=== PATIENT | female | born 1960 | race Caucasian/White ===

== ENCOUNTER 2020-12-03 16:25 | Outpatient (REF) | payer MEDICARE, MEDICAID, SELFPAY ==
--- NOTE | ~2020-12-03 | MM_ITS ---
EXAMINATION: MM SCREENING DIGITAL BREAST TOMOSYNTHESIS, BILATERAL CLINICAL INFORMATION: Screening. Asymptomatic. The lifetime risk of breast cancer based on the Tyrer-Cuzick Model is 10.3%. COMPARISON: Mammography: December 02, 2019 and studies dating back to April 11, 2013 TECHNIQUE: Digital breast tomosynthesis is performed in both the craniocaudal and mediolateral oblique views along with computer-aided detection (CAD). Synthesized 2D images are generated from the tomosynthesis. FINDINGS: The breasts are almost entirely fatty (ACR BI-RADS breast composition Category a). There are no significant masses, abnormal calcifications, or other abnormalities. Innumerable skin calcifications are present within both breasts inferiorly. MM/MM tomosynthesis screening BI IMPRESSION: No specific mammographic findings to suggest malignancy. ASSESSMENT: BI-RADS 2: Benign RECOMMENDATION: Routine annual mammography screening. This patient's information was entered into a reminder system with a target due date for their next mammogram.
== END 2020-12-03 16:26 | disposition home or self-care (01) ==
LOC: HO.MAMMO 16:25
PROVIDERS: PCP Internal Medicine Endocrinology, Diabetes & Metabolism; Visit Provider Internal Medicine Endocrinology, Diabetes & Metabolism
DX: Z12.31 Encounter for screening mammogram for malignant neoplasm of breast (principal)
CPT/HCPCS: 77063; 77067

== ENCOUNTER 2021-12-08 16:24 | Outpatient (REF) | payer MEDICARE, MEDICAID, SELFPAY ==
--- NOTE | ~2021-12-08 | MM_ITS ---
EXAMINATION: MM SCREENING DIGITAL BREAST TOMOSYNTHESIS, BILATERAL CLINICAL INFORMATION: Screening. Asymptomatic. The lifetime risk of breast cancer based on the Tyrer-Cuzick Model is 11%. COMPARISON: Mammography: 12/03/2020, 12/02/2019, 11/15/2018 TECHNIQUE: Digital breast tomosynthesis is performed in both the craniocaudal and mediolateral oblique views along with computer-aided detection (CAD). Synthesized 2D images are generated from the tomosynthesis. FINDINGS: The breasts are almost entirely fatty (ACR BI-RADS breast composition Category a). Background stromal markings are stable. There is no interval mass or architectural abnormality. Some scattered round and right ductal secretory calcifications are again seen. Prior mammography suggested numerous dermal calcifications. However, the finding is no longer present suggesting dermal artifact previously from topical ointment or powder. The axilla are unremarkable. MM/MM tomosynthesis screening BI IMPRESSION: No mammographic evidence of malignancy. ASSESSMENT: BI-RADS 2: Benign RECOMMENDATION: Routine annual mammography screening. This patient's information was entered into a reminder system with a target due date for their next mammogram.
== END 2021-12-08 16:25 | disposition home or self-care (01) ==
LOC: HO.MAMMO 16:24
PROVIDERS: PCP Internal Medicine Endocrinology, Diabetes & Metabolism; Visit Provider Internal Medicine Endocrinology, Diabetes & Metabolism
DX: Z12.31 Encounter for screening mammogram for malignant neoplasm of breast (principal)
CPT/HCPCS: 77063; 77067

== ENCOUNTER 2022-04-13 16:39 | Outpatient (REF) | payer MEDICARE, MEDICAID, SELFPAY ==
[2022-04-13 16:54] LABS: MANUAL DIFF FLAG NO
[2022-04-13 18:16] LABS: Alanine Aminotransferase 18 U/L (0-31); Albumin Level 4.7 g/dL (3.5-5.0); Alkaline Phosphatase 56 U/L (39-117); Aspartate Amino Transferase 20 U/L (5-31); Bilirubin Direct 0.2 mg/dL (0.0-0.5); Bilirubin Total 0.8 mg/dL (0.0-1.0); Iron 93 mcg/dL (30-160); Percent Iron Saturation 32 % (15-50); Total Iron Binding Capacity 293 mcg/dL (228-428); Total Protein 7.7 g/dL (6.5-8.0); Unsaturated Iron Binding 200 ug/dL
[2022-04-13 18:26] LABS: Basophils Absolute Auto 0.1 X10*3/uL (0.0-0.2); Basophils Percent Auto 0.9 % (0-2); Eosinophils Absolute Auto 0.2 X10*3/uL (0.0-0.4); Eosinophils Percent Auto 3.1 % (0-4); Hematocrit 43.3 % (37.0-47.0); Hemoglobin 14.4 g/dl (12.0-16.0); Imm Gran Abs Auto 0.01 X10*3/uL (0.00-0.03); Imm Gran Pct Auto 0.2 % (0.0-0.4); Lymphocytes Absolute Auto 2.7 X10*3/uL (1.2-4.9); Lymphocytes Percent Auto 41.8 % (20-40); Mean Corpuscular HGB Conc 33.3 g/dl (31.0-35.0); Mean Corpuscular Hemoglobin 30.4 pg (27.0-33.0); Mean Corpuscular Volume 91.4 fL (80.0-98.0); Mean Platelet Volume 9.6 fL (9.4-12.3); Monocytes Absolute Auto 0.4 X10*3/uL (0.1-1.2); Monocytes Percent Auto 6.9 % (2-11); Neutrophils Percent Auto 47.1 % (45-73); Platelet Count 308 X10*3/uL (160-400); Red Blood Count 4.74 X10*6/uL (4.20-5.50); Red Cell Distribution Width 12.3 % (11.0-16.0); White Blood Count 6.4 X10*3/uL (4.8-10.8)
== END 2022-04-13 16:40 | disposition home or self-care (01) ==
LOC: HO.LAB 16:39
PROVIDERS: Visit Provider Physician Assistant Medical
DX: L65.9 Nonscarring hair loss, unspecified (principal)
CPT/HCPCS: 36415; 80076; 83540; 85025

== ENCOUNTER 2023-03-31 09:08 | Outpatient (AMB) | payer MEDICARE, MEDICAID, SELFPAY ==
--- NOTE | 2023-03-31 09:14 | MHC.OFFWIV ---
Intake Vital Signs 03/31/23 09:15 Height 5 ft 6 in Weight 175 lb BMI 28.2 BP 130/90 H Blood Pressure Location Lt brachial Position Sitting Pulse 94 Pulse Source Pulse Oximeter Pulse Oximetry (%) 98 Oxygen Delivery Method Room Air Intake Visit Reasons: EP RT hip pain Intake Note: Patient here for right hip pain which has been progressively worsened over the past couple of weeks. Pain goes to the thigh and is having issues bending. Patient Tobacco Use Status: Never used Tobacco Allergies bacitracin [From Cortisporin] Allergy (Mild, Verified 03/31/23 09:17) itchy rash hydrocortisone [From Cortisporin] Allergy (Mild, Verified 03/31/23 09:17) itchy rash neomycin [From Cortisporin] Allergy (Mild, Verified 03/31/23 09:17) itchy rash polymyxin B [From Cortisporin] Allergy (Mild, Verified 03/31/23 09:17) itchy rash azithromycin [From ZITHROMAX] Allergy (Unknown, Unverified 03/31/23 09:17) HIVES Iodinated Contrast Media [IV DYE, IODINE CONTAINING CONTRAST ] Allergy (Unknown, Unverified 03/31/23 09:17) DIFFICULTY BREATHING sulfamethoxazole [From BACTRIM] Allergy (Unknown, Unverified 03/31/23 09:17) RASH sumatriptan [From IMITREX] Allergy (Unknown, Unverified 03/31/23 09:17) RASH trimethoprim [From BACTRIM] Allergy (Unknown, Unverified 03/31/23 09:17) RASH From IMITREX Allergy (Unknown, Uncoded 03/31/23 09:17) RASH Do you need a note to return to daycare/school/sports/work: No HPI EP RT hip pain HPI Details Patient is a 62-year-old female comes to the walk-in clinic complaining of Patient here for right hip pain which has been progressively worsening over the last few weeks. She has not trialed more than OTC ibuprofen for this in the past. She has appointment in about a week with collections specialist however she states that the pain has become severe especially when elevating her leg. No fever or chills, weakness or malaise or other systemic or infectious symptoms. She denies acute trauma or repetitive injury. [facility] Social History Patient Tobacco Use Status: Never used Tobacco Review of Systems Const All systems reviewed & are unremarkable except as noted in HPI and below Physical Exam Vital Signs: Last Vital Signs Pulse 94 03/31/23 09:15 BP 130/90 H 03/31/23 09:15 Pulse Ox 98 03/31/23 09:15 Oxygen Delivery Method Room Air 03/31/23 09:15 BMI result Body Mass Index 28.2 Const General: cooperative, alert, awake, Physically active, in distress and well groomed; No comfortable, anxious, diaphoretic, ill appearing, intoxicated appearing, poor hygiene or tired appearing Nutritional Appearance: overweight Orientation/consciousness: patient oriented x3 Resp Effort & Inspection: normal respiratory effort Cardio Rate: regular rate Skin Other: Good color, warm and dry Neuro General: patient oriented x3 Extrem Right lower extremity: normal to inspection, normal capillary refill, no joint enlargement and hip/thigh Details: tenderness Location: of the hip and abnormal ROM Details: pain with active ROM during Details: with ADduction and to external rotation; no swelling, no ecchymosis, no crepitus and no unusual warmth; ROM limited, no cyanosis and no edema Psych Appearance: grossly normal Mental Status: mental status grossly normal Speech and movement: Normal speech and movement present Affect: normal affect Attitude: cooperative Thought process: Normal thought process present Insight: Good insight present (Psych) Judgement: Good judgement present (Psych) Results Reviewed Results Reviewed: Right hip with pelvic view reviewed, on wet read with moderate osteoarthritis. No apparent acute trauma noted Assessment & Plan Assessment & Plan (1) Hip pain: Code(s): M25.559 - Pain in unspecified hip Qualifiers: Laterality: right Qualified Code(s): M25.551 - Pain in right hip Plan: Patient is a 62-year-old female complaining of right hip pain that has become severe over the last few weeks. Plain film x-ray today shows osteoarthritis on my wet read, as well as bone spur that seems to be clinically correlated with where her pain is most severe, especially with external rotation of the hip. No symptoms to correlate with septic joint today. She has not trialed more than OTC ibuprofen for this in the past, so I will write her for naproxen today. She already has a crutch to help alleviate weight-bearing with ambulation. She states that she can not tolerate cortisone injections, so we did not consider prednisone today. She has appointment in about a week with collections specialist, and already has an appointment later this year with primary care to follow up with this. Orders: Orders XR hip RT w PEL1V 03/31/23 M25.559 - Pain in unspecified hip Medications: New naproxen 500 mg PO BID PRN 30 tabs 0RF pain 14 days Coding Level of Care Code Est Pt Level 4 (30854) Diagnoses Pain of right hip M25.551 Laterality: right
[2023-03-31 09:15] VITALS: BP 130/90; PULSE 94; O2SAT 98; BMI 28.2
== END 2023-03-31 10:34 | disposition home or self-care (01) ==
PROVIDERS: PCP Internal Medicine; Visit Provider Physician Assistant Medical
DX: M25.551 Pain in right hip (principal)
CPT/HCPCS: 99214

== ENCOUNTER 2023-03-31 09:39 | Outpatient (REF) | payer MEDICARE, MEDICAID, SELFPAY ==
--- NOTE | ~2023-03-31 | XR_ITS ---
EXAMINATION: XR HIP, RIGHT CLINICAL INFORMATION: Pain in the right hip for a few weeks COMPARISON: None available. TECHNIQUE: Two views of the right hip. FINDINGS: No fracture. Alignment is anatomic. There is pincer type femoral acetabular impingement. There is a joint space narrowing with subchondral sclerosis. Soft tissues are unremarkable. XR/XR hip RT w PEL1V IMPRESSION: Mild degenerative disease of the right hip.
== END 2023-03-31 09:40 | disposition home or self-care (01) ==
LOC: HO.HMGCX 09:39
PROVIDERS: PCP Internal Medicine; Visit Provider Physician Assistant Medical
DX: M25.551 Pain in right hip (principal)
CPT/HCPCS: 73502

== ENCOUNTER 2023-04-20 07:55 | Outpatient (AMB) | payer MEDICARE, MEDICAID, SELFPAY ==
--- NOTE | 2023-04-20 08:02 | MHC.PC.OV ---
Vital Signs 04/20/23 08:38 Height 5 ft 6 in Weight 175 lb BMI 28.2 BP 142/80 H Blood Pressure Location Rt radial Position Sitting Pulse 84 Pulse Source Pulse Oximeter Pulse Oximetry (%) 96 Oxygen Delivery Method Room Air Intake Visit Reasons: Est care / Hip Pain Allergies bacitracin [From Cortisporin] Allergy (Mild, Verified 04/20/23 08:04) itchy rash hydrocortisone [From Cortisporin] Allergy (Mild, Verified 04/20/23 08:04) itchy rash neomycin [From Cortisporin] Allergy (Mild, Verified 04/20/23 08:04) itchy rash polymyxin B [From Cortisporin] Allergy (Mild, Verified 04/20/23 08:04) itchy rash azithromycin [From ZITHROMAX] Allergy (Unknown, Verified 04/20/23 08:04) HIVES Iodinated Contrast Media [IV DYE, IODINE CONTAINING CONTRAST ] Allergy (Unknown, Verified 04/20/23 08:04) DIFFICULTY BREATHING sulfamethoxazole [From BACTRIM] Allergy (Unknown, Verified 04/20/23 08:04) RASH sumatriptan [From IMITREX] Allergy (Unknown, Verified 04/20/23 08:04) RASH trimethoprim [From BACTRIM] Allergy (Unknown, Verified 04/20/23 08:04) RASH From IMITREX Allergy (Unknown, Uncoded 03/31/23 09:17) RASH Medication List - Last Reconciled 04/20/23 by Skyla Vidal, [employer]- acetaminophen (Tylenol Extra Strength) 500 mg PO Q6H PRN cyanocobalamin (vitamin B-12) mcg IM Q4W docosahexaenoic acid (Algal [place]-3 DHA) mg PO lorazepam 1 mg PO DAILY PRN meloxicam 15 mg PO DAILY metronidazole 1% (Metrogel) 1 appl topical BID HPI HPI Comments History of Present Illness Details [age] year with osteoarthritis, pernicious anemia, insomnia, post concussive syndrome Health maintenance: Mammogram ordered May of 2023, last 12/08/2021 within normal limits BI-RADS 2 benign Colonoscopy: DEXA: Pap: Immunizations Specialists: Of note she is not seeing any of the specialists at the current time Endocrinology Cardiology Orthopedics Neurology family hx: son alive and well dtr age 14 of brain cancer [place] New patient here today. No old records to review prior to this appointment. Has not had a primary care in years. CC: Right hip impingement and OA Ff'd by [facility]. Wants to do lidocaine injection next week. Was rx'd meloxicam. Has taken 1 dose to date. MRI 03/2023 reviewed. Walking with a crutch at this time. No falls or overt trauma. Insomnia - requesting RX for ativan. Last time taken was a few weeks ago. REGISTERED DIETETIC TECHNICIAN reviewed. Melatonin she could not tolerate, along w/ Ambien, Lunesta. Does not like taking meds, feels she is very sensitive to all medications. The skin around the nail on the right ring finger has become red, painful, hot to the touch over the last few days. She has been soaking in Epsom salt and water without much relief. She denies any trauma to the finger [facility] Social History Patient Tobacco Use Status: Never used Tobacco Questionnaire PHQ-9 Over the last 2 weeks, how often have you been bothered by any of the following problems? 1. Little interest or pleasure in doing things: not at all 2. Feeling down, depressed, or hopeless: not at all 3. Trouble falling or staying asleep, or sleeping too much: not at all 4. Feeling tired or having little energy: not at all 5. Poor appetite or overeating: not at all 6. Feeling bad about yourself - or that you are a failure or have let yourself or your family down: not at all 7. Trouble concentrating on things, such as reading the newspaper or watching television: not at all 8. Moving or speaking so slowly that other people could have noticed. Or the opposite - being so fidgety or restless that you have been moving around a lot more than usual: not at all 9. Thoughts that you would be better off or of hurting yourself in some way: not at all Total score: 0 Depression Screening Interpretation: Negative Depression Screening Done: Yes 99332 - PHQ-9 Billing: Yes Source: Developed by Drs. Joseph Tracy, Ledy Nguyen, Erik Hudson and colleagues, with an educational jameson from [employer]. Thrive Questionnaire I am a: Patient What is your living situation today?: I have a steady place to live Within the past 12 months, did the food you bought not last and you didn't have the money to get more?: Never true Within the past 12 months, did you worry whether your food would run out before you got money to buy more?: Never true Do you have trouble paying for medicines?: No Do you have trouble getting transportation to medical appointments?: No Do you have trouble paying your heating and electricity bill?: No Do you have trouble taking care of your child, family member or friend?: No Do you have trouble with day-to-day activities such as bathing, preparing meals, shopping, managing finances, etc.?: No Are you currently unemployed and looking for a job?: No Are you interested in more education?: No Please select the resources that you would like help with: None Currently or been in a relationship where the following occur: no concerns reported THRIVE Score: 0 AUDIT C Alcohol Use Questionnaire (AUDIT-C) 1. How often do you have a drink containing alcohol?: Never 2. How many drinks containing alcohol do you have on a typical day when you are drinking?: 1 or 2 3. How often do you have six or more drinks on one occasion?: Never Total Score: 0 Score Reviewed/Action Taken: No GLADIS-7 AMB Questionnaire GLADIS-7 Feeling nervous, anxious, or on edge: 0 = Not at all Not being able to stop or control worryin = Not at all Worrying too much about different things: 0 = Not at all Trouble relaxin = Not at all Being so restless that it is hard to sit still: 0 = Not at all Becoming easily annoyed or irritable: 0 = Not at all Feeling afraid as if something awful might happen: 0 = Not at all Total GLADIS-7 score (0-4 normal; 5-9 mild; 10-14 moderate; 15-21 severe): 0 Source: Developed by Drs. Joseph Tracy, Ledy Nguyen, Erik Hudson and colleagues, with an educational jameson from [employer]. GLADIS-7 Assessment Billing GLADIS-7 Assessment Tool: GLADIS-7 Assessment 91600 Review of Systems Const All systems reviewed & are unremarkable except as noted in HPI and below Physical exam (Primary Care) Vital Signs: Last Vital Signs Pulse 84 04/20/23 08:38 BP 142/80 H 04/20/23 08:38 Pulse Ox 96 04/20/23 08:38 Oxygen Delivery Method Room Air 04/20/23 08:38 BMI result Body Mass Index 28.2 Tobacco/Smoking Status: Tobacco use Status Patient Tobacco Use Status Never used Tobacco 04/20/23 08:11 PHQ-9: PHQ-9 Score PHQ-9: Total score 0 04/20/23 11:31 Depression Screening Interpretation: Negative Currently or been in a relationship where the following occur: no concerns reported Const Other: Awake alert oriented ls ctab rrr Walking with 1 crutch, antalgic gait favoring the right side, limited range of motion of the right hip due to pain. Positive pedal pulses on the right, no edema Paronychia noted right ring finger Assessment and Plan Assessment & Plan (1) Osteoarthritis of right hip: Comment: Followed by knowing when Orthopedics. I have advised her to continue taking the meloxicam as directed. Do not take with any other [id number] NSAIDs. It is okay to use up to 3 g of Tylenol per day to help with breakthrough pain. I have also advised her to get a commode to use the bathroom so that she does not have to sit so low which seems to cause her more pain. She asked me what other medication she could use for her pain and I advised that she can continue to use the topical lidocaine patches as well as add turmeric into her med regimen. Code(s): M16.11 - Unilateral primary osteoarthritis, right hip Qualifiers: Osteoarthritis type: primary Qualified Code(s): M16.11 - Unilateral primary osteoarthritis, right hip (2) Insomnia: Comment: Was using Ativan in the past for insomnia. Beers criteria reviewed with her. Reports that she has tried and failed Lunesta and Ambien in the past. She has also failed melatonin. We will trial her on trazodone 25-50 mg. I have asked her to let me know how this is or is not working. We can titrate to effect. If this is not effective we can consider stopping this and starting mirtazapine. Sleep hygiene reviewed Code(s): G47.00 - Insomnia, unspecified Qualifiers: Insomnia type: due to other mental disorder Qualified Code(s): F51.05 - Insomnia due to other mental disorder; F99 - Mental disorder, not otherwise specified (3) Pernicious anemia: Comment: Gives herself B12 injections. We will check labs today Code(s): D51.0 - Vitamin B12 deficiency anemia due to intrinsic factor deficiency (4) Paronychia of finger of right hand: Code(s): L03.011 - Cellulitis of right finger Plan: Treat with antibiotics. Continue to soak in warm water mix with Epsom salt. Gently massage the area of redness. However do not squeeze. Educated on reasons to seek additional care (5) Post-menopause: Comment: Will need to check a DEXA scan in the future. Vitamin-D labs ordered today Code(s): Z78.0 - Asymptomatic menopausal state Plan I have asked my staff to get records from [facility] as she reports that she has had visits there to include imaging. She reports that all of her other medical records are available to me this includes her records from previous neurologist Dr. Magana on whose practice since closed or Dr. Soniya reed who is the inorganic chemistry teacher that was working both as her primary care as well as her inorganic chemistry teacher. Total time spent caring for the patient today was 60 minutes. This includes time spent before the visit reviewing the chart, time spent during the visit, and time spent after the visit on documentation This note is constructed using voice recognition software. While every effort has been made to ensure accuracy in [employer] rep, still errors may have been included Sometimes, these errors may affect the content or meaning of the given sentence . Orders: Orders Comprehensive Met. Panel Today D51.0 - Vitamin B12 deficiency anemia due to intrinsic factor deficiency, Z78.0 - Asymptomatic menopausal state TSH reflex Free T4 Today D51.0 - Vitamin B12 deficiency anemia due to intrinsic factor deficiency, Z78.0 - Asymptomatic menopausal state Vitamin D 1,25 dihydroxy Today D51.0 - Vitamin B12 deficiency anemia due to intrinsic factor deficiency, Z78.0 - Asymptomatic menopausal state Complete Blood Count no Diff Today D51.0 - Vitamin B12 deficiency anemia due to intrinsic factor deficiency, Z78.0 - Asymptomatic menopausal state Microalbumin, Random (w Creat) Today D51.0 - Vitamin B12 deficiency anemia due to intrinsic factor deficiency, Z78.0 - Asymptomatic menopausal state LDL Cholesterol Direct Today D51.0 - Vitamin B12 deficiency anemia due to intrinsic factor deficiency, Z78.0 - Asymptomatic menopausal state Vitamin B12 and Folate Today D51.0 - Vitamin B12 deficiency anemia due to intrinsic factor deficiency, Z78.0 - Asymptomatic menopausal state UA and rflx microscopic Today D51.0 - Vitamin B12 deficiency anemia due to intrinsic factor deficiency, Z78.0 - Asymptomatic menopausal state Medications: New trazodone 1/2 - 1 tab daily at bedtime as needed for insomnia 25 mg (1/2 x 50 mg) PO DAILY 30 days 15 tabs 0RF cephalexin 500 mg PO Q12H 7 days 14 caps 0RF Changed From cyanocobalamin (vitamin B-12) IM Q4W D51.0 - Vitamin B12 deficiency anemia due to intrinsic factor deficiency To cyanocobalamin (vitamin B-12) 1,000 mcg IM Q4W 1,200 mL 0RF D51.0 - Vitamin B12 deficiency anemia due to intrinsic factor deficiency Patient Instructions: Consider purchasing toilet commode Turmeric dosage for arthritis: According to the [employer], a turmeric capsules dosage of?400 to 600 milligrams three times per day Coding Level of Care Code New Pt Level 5 (02799) Diagnoses Primary osteoarthritis of right hip M16.11 Osteoarthritis type: primary Insomnia due to other mental disorder F51.05; F99 Insomnia type: due to other mental disorder Pernicious anemia D51.0 Paronychia of finger of right hand L03.011 Post-menopause Z78.0 Additional Codes GLADIS-7 Assessment Billing - GLADIS-7 Assessment Tool: GLADIS-7 Assessment 06347 ([id number])
[2023-04-20 08:38] VITALS: BP 142/80; PULSE 84; O2SAT 96; BMI 28.2
== END 2023-04-20 08:53 | disposition home or self-care (01) ==
PROVIDERS: PCP Internal Medicine; Visit Provider Nurse Practitioner Family
DX: M16.11 Unilateral primary osteoarthritis, right hip (principal); F51.05 Insomnia due to other mental disorder; F99 Mental disorder, not otherwise specified; D51.0 Vitamin B12 deficiency anemia due to intrinsic factor deficiency; L03.011 Cellulitis of right finger; Z78.0 Asymptomatic menopausal state
CPT/HCPCS: 99215

== ENCOUNTER 2023-05-28 10:53 | Outpatient (AMB) | payer MEDICARE, MEDICAID, SELFPAY ==
--- NOTE | 2023-05-28 11:01 | A.OFFPC_ITS ---
Vital Signs 05/28/23 11:03 Height 5 ft 6 in BMI Reason not done Patient refused/unable BP 141/81 H Blood Pressure Location Rt brachial Position Standing Respiration 14 Pulse 114 H Pulse Source Pulse Oximeter Temp 97.6 F Temp Source Temporal Artery Scan Pulse Oximetry (%) 97 Oxygen Delivery Method Room Air Intake Visit Reasons: MILD DISABILITIES TEACHER, hip pain Print Finishing Worker Required: No Accompanied by: Self / Same As Patient Allergies bacitracin [From Cortisporin] Allergy (Mild, Verified 05/28/23 11:10) itchy rash hydrocortisone [From Cortisporin] Allergy (Mild, Verified 05/28/23 11:10) itchy rash neomycin [From Cortisporin] Allergy (Mild, Verified 05/28/23 11:10) itchy rash polymyxin B [From Cortisporin] Allergy (Mild, Verified 05/28/23 11:10) itchy rash azithromycin [From ZITHROMAX] Allergy (Unknown, Verified 05/28/23 11:10) HIVES Iodinated Contrast Media [IV DYE, IODINE CONTAINING CONTRAST ] Allergy (Unknown, Verified 05/28/23 11:10) DIFFICULTY BREATHING sulfamethoxazole [From BACTRIM] Allergy (Unknown, Verified 05/28/23 11:10) RASH sumatriptan [From IMITREX] Allergy (Unknown, Verified 05/28/23 11:10) RASH trimethoprim [From BACTRIM] Allergy (Unknown, Verified 05/28/23 11:10) RASH mirtazapine Adverse Reaction (Mild, Verified 05/28/23 11:36) Vomiting trazodone Adverse Reaction (Mild, Verified 05/28/23 11:36) Vomiting From IMITREX Allergy (Unknown, Uncoded 03/31/23 09:17) RASH Medication List - Last Reconciled 05/28/23 by GERALD Hernandez- acetaminophen (Tylenol Extra Strength) 500 mg PO Q6H PRN cyanocobalamin (vitamin B-12) 1,000 mcg IM Q4W 12 months docosahexaenoic acid (Algal [place]-3 DHA) mg PO metronidazole 0.75% 1 appl topical DAILY PRN Tobacco use date assessed: 05/28/23 Fall risk assessment: No Falls in past year Last assessed Fall Risk: 05/28/23 Dental Screening Dental Screen Date: 05/28/23 Did you have a dental visit in the last 12 months?: Yes Did you have a dental problem in the last 6 months where you did not have access to dental care?: No Was dental information given to patient?: Patient has dentist HPI HPI Comments History of Present Illness Details 63 y/o F with osteoarthritis, pernicious anemia, insomnia, post concussive syndrome Health maintenance: Mammogram ordered May of 2023, last 12/08/2021 within normal limits BI-RADS 2 benign Colonoscopy: DEXA:Ordered April 2023 Pap: Immunizations Specialists: Of note she is not seeing any of the specialists at the current time Endocrinology Cardiology Orthopedics Neurology family hx: son alive and well dtr age 14 of brain cancer [place] Still no medical records avail for me to review: Here today for follow up. Labs ordered at last office visit however she did not get these done. Will do now. Of note she did b12 injection 1 week ago. She was prescribed trazodone to help her sleep. However she could not tolerate so stopped. Reports in pain in R hip and lower leg, active w/ [facility]. States a letter was sent to me asking for something to treat the pain. Explained I did not get this as of now. Taking Aleve and APAP, does not help. Stopped taking Meloxicam. MRI done R hip 04/08/23 - pt will have scanned in. Reviewed today. Has a second opinion consult. Has not had appt yet. Trazadone made her nauseas. Remeron she took x 1 and she vomited. Lots of med adv effects. [facility] Medical History (Updated 05/28/23 @ 11:46 by Skyla Vidal, [facility]) Iliopsoas bursitis of right hip Surgical History (Updated 05/28/23 @ 11:15 by Shelly Anguiano MA) No pertinent past surgical history Social History Housing: House Patient Tobacco Use Status: Never used Tobacco e-Cigarette/Vaping Use: Never Used service: No Current occupational status: disabled Cognitive needs: No Hearing needs: Yes Vision needs: Yes Questionnaire PHQ-9 Over the last 2 weeks, how often have you been bothered by any of the following problems? 1. Little interest or pleasure in doing things: not at all 2. Feeling down, depressed, or hopeless: not at all 3. Trouble falling or staying asleep, or sleeping too much: not at all 4. Feeling tired or having little energy: not at all 5. Poor appetite or overeating: not at all 6. Feeling bad about yourself - or that you are a failure or have let yourself or your family down: not at all 7. Trouble concentrating on things, such as reading the newspaper or watching television: not at all 8. Moving or speaking so slowly that other people could have noticed. Or the opposite - being so fidgety or restless that you have been moving around a lot more than usual: not at all 9. Thoughts that you would be better off or of hurting yourself in some way: not at all Total score: 0 Depression Screening Interpretation: Negative Depression Screening Done: Yes 54099 - PHQ-9 Billing: Yes Source: Developed by Drs. Joseph Tracy, Ledy Nguyen, Erik Hudson and colleagues, with an educational jameson from [employer]. Thrive Questionnaire Date Thrive assessed: 05/28/23 I am a: Patient What is your living situation today?: I have a steady place to live Within the past 12 months, did the food you bought not last and you didn't have the money to get more?: I choose not to answer this question Within the past 12 months, did you worry whether your food would run out before you got money to buy more?: I choose not to answer this question Do you have trouble paying for medicines?: I choose not to answer this question Do you have trouble getting transportation to medical appointments?: I choose not to answer this question Do you have trouble paying your heating and electricity bill?: I choose not to answer this question Do you have trouble taking care of your child, family member or friend?: I choose not to answer this question Do you have trouble with day-to-day activities such as bathing, preparing meals, shopping, managing finances, etc.?: I choose not to answer this question Are you currently unemployed and looking for a job?: I choose not to answer this question Are you interested in more education?: I choose not to answer this question Please select the resources that you would like help with: None Currently or been in a relationship where the following occur: no concerns reported THRIVE Score: 0 AUDIT C Alcohol Use Questionnaire (AUDIT-C) 1. How often do you have a drink containing alcohol?: Never 3. How often do you have six or more drinks on one occasion?: Never Total Score: 0 GLADIS-7 AMB Questionnaire GLADIS-7 Date GLADIS - 7 assessed: 05/28/23 Feeling nervous, anxious, or on edge: 0 = Not at all Not being able to stop or control worryin = Not at all Worrying too much about different things: 0 = Not at all Trouble relaxin = Not at all Being so restless that it is hard to sit still: 0 = Not at all Becoming easily annoyed or irritable: 0 = Not at all Feeling afraid as if something awful might happen: 0 = Not at all Total GLADIS-7 score (0-4 normal; 5-9 mild; 10-14 moderate; 15-21 severe): 0 Source: Developed by Drs. Joseph Tracy, Ledy Nguyen, Erik Hudson and colleagues, with an educational jameson from [employer]. GLADIS-7 Assessment Billing GLADIS-7 Assessment Tool: GLADIS-7 Assessment 97931 Review of Systems Const All systems reviewed & are unremarkable except as noted in HPI and below Physical exam (Primary Care) Vital Signs: Last Vital Signs Temp 97.6 F 05/28/23 11:03 Pulse 114 H 05/28/23 11:03 Resp 14 05/28/23 11:03 BP 141/81 H 05/28/23 11:03 Pulse Ox 97 05/28/23 11:03 Oxygen Delivery Method Room Air 05/28/23 11:03 Tobacco/Smoking Status: Tobacco use Status Tobacco use date assessed 05/28/23 05/28/23 11:18 Patient Tobacco Use Status Never used Tobacco 05/28/23 11:02 e-Cigarette/Vaping Use Never Used 05/28/23 11:18 PHQ-9: PHQ-9 Score PHQ-9: Total score 0 05/28/23 11:18 Depression Screening Interpretation: Negative Thrive Assessment: Date of Thrive Assessment Date Thrive assessed 05/28/23 05/28/23 11:18 Currently or been in a relationship where the following occur: no concerns reported Const Other: Awake alert oriented, standind during visit, wearing sun glasses speaking in full sentences Mood and affect: pacing, talking quick, repeating same questions, anxious, depressed Walking with 1 crutch, antalgic gait favoring the right side, limited range of motion of the right hip due to pain. r Assessment and Plan Assessment & Plan (1) Osteoarthritis of right hip: Comment: Followed by JOHN. MRI 03/2023. She has requested a 2nd opinion and this consult is pending. Active with [facility] physical therapy. For her pain I have advised her to stop taking aleve and have represcribed meloxicam. Do not take with any other [id number] NSAIDs. It is okay to use up to 3 g of Tylenol per day to help with breakthrough pain. At last visit I advised her to get a commode to use the bathroom so that she does not have to sit so low which seems to cause her more pain. She asked me what other medication she could use for her pain and I advised that she can continue to use the topical lidocaine patches as well as add turmeric into her med regimen. Did not revisit these 2 recommendations today. Given the amount of pain that she is having decision was made to refer her to pain management at [facility] for further evaluation and treatment. Code(s): M16.11 - Unilateral primary osteoarthritis, right hip Qualifiers: Osteoarthritis type: primary Qualified Code(s): M16.11 - Unilateral primary osteoarthritis, right hip (2) Insomnia: Comment: Was using Ativan in the past for insomnia. Beers criteria reviewed with her at last visit Reports that she has tried and failed Lunesta and Ambien in the past. She has also failed melatonin. Trazodone made her nauseous and mirtazapine made her vomit. Prescription for Cymbalta 30 mg to be taken at bedtime given. I made her aware that I am worried she will not be able to tolerate given her adverse reactions to multiple medications. She mentioned taking Gaviscon or Tums at the same time. Educated about proper use of these medications. Do not take 2 hours before or 2 hours after prescribed medications. I have given her a 2 week supply and will bring her back in 2 weeks to follow up. Code(s): G47.00 - Insomnia, unspecified Qualifiers: Insomnia type: due to other mental disorder Qualified Code(s): F51.05 - Insomnia due to other mental disorder; F99 - Mental disorder, not otherwise specified Plan This note is constructed using voice recognition software. While every effort has been made to ensure accuracy in microwave remote sensing scientist, still errors may have been included Sometimes, these errors may affect the content or meaning of the given sentence . Total time spent caring for the patient today was 30 minutes. This includes time spent before the visit reviewing the chart, time spent during the visit, and time spent after the visit on documentation Orders: Referrals Pain Management Referral M16.11 - Unilateral primary osteoarthritis, right hip Medications: New meloxicam 15 mg PO DAILY 30 tabs 0RF duloxetine (Cymbalta) take at bedtime 30 mg PO DAILY 14 caps 0RF Coding Level of Care Code Est Pt Level 4 (62112) Diagnoses Primary osteoarthritis of right hip M16.11 Osteoarthritis type: primary Insomnia due to other mental disorder F51.05; F99 Insomnia type: due to other mental disorder Additional Codes GLADIS-7 Assessment Billing - GLADIS-7 Assessment Tool: GALDIS-7 Assessment 50005 ([id number])
[2023-05-28 11:03] VITALS: BP 141/81; PULSE 114; RESP 14; TEMP 36.4; O2SAT 97
== END 2023-05-28 11:59 | disposition home or self-care (01) ==
PROVIDERS: PCP Internal Medicine; Visit Provider Nurse Practitioner Family
DX: M16.11 Unilateral primary osteoarthritis, right hip (principal); F51.05 Insomnia due to other mental disorder; F99 Mental disorder, not otherwise specified
CPT/HCPCS: 99214

== ENCOUNTER 2023-05-28 11:43 | Outpatient (REF) | payer MEDICARE, MEDICAID, SELFPAY ==
[2023-05-28 14:31] LABS: Hematocrit 42.7 % (37.0-47.0); Hemoglobin 14.3 g/dl (12.0-16.0); Mean Corpuscular HGB Conc 33.5 g/dl (31.0-35.0); Mean Corpuscular Volume 92.4 fL (80.0-98.0); Mean Platelet Volume 10.1 fL (9.4-12.3); Platelet Count 318 X10*3/uL (160-400); Red Blood Count 4.62 X10*6/uL (4.20-5.50); Red Cell Distribution Width 12.3 % (11.0-16.0); White Blood Count 6.3 X10*3/uL (4.8-10.8)
[2023-05-28 14:37] LABS: Alanine Aminotransferase 13 U/L (0-31); Albumin Level 4.6 g/dL (3.5-5.0); Alkaline Phosphatase 55 U/L (39-117); Anion Gap 13 (12-20); Aspartate Amino Transferase 14 U/L (5-31); Bilirubin Total 0.7 mg/dL (0.0-1.0); Blood Urea Nitrogen 15 mg/dL (9-16); Calcium 9.7 mg/dL (8.4-10.2); Carbon Dioxide 25 mmol/L (22-29); Chloride 106 mmol/L (96-108); Estimated Glomerular Filt Rate > 60; Glucose Random 132 mg/dL (60-115); Potassium 3.6 mmol/L (3.3-5.1); Sodium 140 mmol/L (135-145); Total Protein 7.7 g/dL (6.5-8.0)
[2023-05-28 14:53] LABS: TSH reflex Free T4 0.72 uIU/mL (0.32-4.0)
[2023-05-28 15:07] LABS: Vitamin B12 906 pg/mL (200-900)
[2023-05-30 11:08] LABS: LDL Cholesterol Direct 104 mg/dL (<100)
[2023-06-03 15:33] LABS: VITAMIN D (1,25 OH) D3 25 pg/mL; Vit D (1,25-Dihydroxy) Total 48 pg/mL (18-72); Vitamin D (1,25 OH) D2 23 pg/mL
== END 2023-05-28 11:44 | disposition home or self-care (01) ==
LOC: HO.WFDLDS 11:43
PROVIDERS: Visit Provider Nurse Practitioner Family
DX: D51.0 Vitamin B12 deficiency anemia due to intrinsic factor deficiency (principal); Z78.0 Asymptomatic menopausal state
CPT/HCPCS: 36415; 80053; 82607; 82652; 82746; 83721; 84443; 85027

== ENCOUNTER 2023-06-14 12:55 | Outpatient (AMB) | payer MEDICARE, MEDICAID, SELFPAY ==
--- NOTE | 2023-06-14 12:57 | A.OFFVIS_ITS ---
Intake Vital Signs 3 06/14/23 13:01 Height 5 ft 6 in Weight 175 lb BMI 28.2 BP 134/80 Blood Pressure Location Lt brachial Position Sitting Pulse 105 H Pulse Source Pulse Oximeter Pulse Oximetry (%) 99 Oxygen Delivery Method Room Air Intake Visit Reasons: Unilateral primary osteoarthritis, R hip Intake Note: Pain today 06/26 Manufacturing Technology Analyst Required: No Accompanied by: Family/Other Allergies bacitracin [From Cortisporin] Allergy (Mild, Verified 06/14/23 13:02) itchy rash hydrocortisone [From Cortisporin] Allergy (Mild, Verified 06/14/23 13:02) itchy rash neomycin [From Cortisporin] Allergy (Mild, Verified 06/14/23 13:02) itchy rash polymyxin B [From Cortisporin] Allergy (Mild, Verified 06/14/23 13:02) itchy rash azithromycin [From ZITHROMAX] Allergy (Unknown, Verified 06/14/23 13:02) HIVES Iodinated Contrast Media [IV DYE, IODINE CONTAINING CONTRAST ] Allergy (Unknown, Verified 06/14/23 13:02) DIFFICULTY BREATHING sulfamethoxazole [From BACTRIM] Allergy (Unknown, Verified 06/14/23 13:02) RASH sumatriptan [From IMITREX] Allergy (Unknown, Verified 06/14/23 13:02) RASH trimethoprim [From BACTRIM] Allergy (Unknown, Verified 06/14/23 13:02) RASH mirtazapine Adverse Reaction (Mild, Verified 06/14/23 13:02) Vomiting trazodone Adverse Reaction (Mild, Verified 06/14/23 13:02) Vomiting From IMITREX Allergy (Unknown, Uncoded 03/31/23 09:17) RASH HPI HPI Comments 2 History of Present Illness0 Details Lilly is a very pleasant 63-year-old female who presents to the office today for evaluation management of her right hip pain. He is accompanied by her son. Patient reports pain or right hip with radiation into the groin and thigh for the last 4 months. She had a recent MRI, results as per below. Currently taking Tylenol and nonsteroidal anti-inflammatory medications for the pain. She reports limited benefit with these medications. Pain is worse at night causing her inability to get a good night's sleep. She has been evaluated by [facility] who recommended PT, she tried physical therapy but many of the exercises were too painful. Recently evaluated by Dr. Cosme at [place], plan to start targeted physical therapy. He advised that if she does not find relief with this they can move forward with total right hip replacement. She is hoping to hold off on surgery until absolutely necessary. [facility] surgeons performed diagnostic right hip injection that provided her no relief. She did not tolerate steroids in the past and declines further attempts at injections to the hip. Patient has tried topical medications, heat and ice with minimal improvement of her symptoms Pain today is rated as a 4/10. Aggravated by walking, moving, lying on the affected side. In terms of muscle damage condition is described as pinching, cramping. Pain is negatively impacting patient's sleep, ability to perform activities of daily living, ability to function normally and mood. [facility] Medical History (Updated 06/14/23 @ 14:12 by Stephanie Collins APRN, [facility]) Iliopsoas bursitis of right hip Surgical History (Updated 05/28/23 @ 11:15 by Shelly Anguiano MA) No pertinent past surgical history Social History Housing: House Patient Tobacco Use Status: Never used Tobacco e-Cigarette/Vaping Use: Never Used service: No Current occupational status: disabled Cognitive needs: No Hearing needs: Yes Vision needs: Yes Review of Systems Const All systems reviewed & are unremarkable except as noted in HPI and below Physical Exam Vital Signs: Last Vital Signs Pulse 105 H 06/14/23 13:01 BP 134/80 06/14/23 13:01 Pulse Ox 99 06/14/23 13:01 Oxygen Delivery Method Room Air 06/14/23 13:01 BMI result Body Mass Index 28.2 General: awake, alert, oriented. Answers questions appropriately. Fully engaged in examination. Skin: warm, dry, intact HEENT: Normocephalic. Hearing intact. Cardiac: External chest normal in appearance. Respiratory: No cough, audible wheezing or stridor. Abdomen: without gross distension. MS: No obvious swelling or deformities. Pain with internal/external rotation of the right hip Unable to perform [place] on the right due to pain SLR negative bilaterally Nontender over right PSIS Nontender over midline lumbar vertebrae or lumbar paraspinal muscles Nontender over GTB on the right Bilateral lower extremity strength 5/5 Neurological: Oriented to person, place, time and situation. Thought process intact. Ambulates with use of a crutch Psychiatric: Appropriate mood and affect. Good judgment and insight. Results Reviewed Results Reviewed: 03/2023 MRI right hip Assessment & Plan Assessment & Plan (1) Osteoarthritis of right hip: Code(s): M16.11 - Unilateral primary osteoarthritis, right hip Qualifiers: Osteoarthritis type: primary Qualified Code(s): M16.11 - Unilateral primary osteoarthritis, right hip Plan Lilly is a very pleasant 63-year-old female who presented to the office today for evaluation and management of her chronic right hip pain She is currently under the care of Orthopedics, will be starting targeted physical therapy with potential plan for right total hip replacement. Patient declines any injections to the right hip at this time. Discussed L2-L3 DRG PNS trial/implant with Curonix. Informational pamphlet was provided to the patient. She will consider but at this time would like to start with least invasive options for management. Patient was advised that she would need a mental health evaluation prior to any implantable devices per insurance requirements. Advantage point pamphlet was given to the patient. Continue with Tylenol and Motrin as needed Trial tizanidine 2 mg p.o. 3 times daily as needed. May start taking only at bedtime to see how she tolerates. Patient advised on cautions for use. May cause drowsiness, do not take with alcohol or other NETWORK SPECIALIST depressants. Discuss options for gabapentin, patient does not want to add this medication at this time. She will consider and if pain persists we may add this to her regimen at next visit. All questions and concerns were answered, patient agrees plan. Follow-up 1 month, sooner if needed. Medications: New 2 tizanidine Do not take with other muscle relaxants. No driving or alcohol use while taking this medication. 2 mg PO TID PRN 90 tabs 0RF muscle spasticity Coding Level of Care Code New Pt Level 4 (90828) Diagnoses Primary osteoarthritis of right hip M16.11 Osteoarthritis type: primary
[2023-06-14 13:01] VITALS: BP 134/80; PULSE 105; O2SAT 99; BMI 28.2
== END 2023-06-14 13:54 | disposition home or self-care (01) ==
PROVIDERS: PCP Nurse Practitioner Family; Referring Provider Nurse Practitioner Family; Visit Provider Registered Nurse Emergency
DX: M16.11 Unilateral primary osteoarthritis, right hip (principal)
CPT/HCPCS: 99204

== ENCOUNTER → 2023-06-14 12:55 | Outpatient (BNVA) | payer MEDICARE, MEDICAID, SELFPAY | PROVIDERS: PCP Nurse Practitioner Family; Referring Provider Nurse Practitioner Family; Visit Provider Registered Nurse Emergency | DX: M16.11 Unilateral primary osteoarthritis, right hip (principal) | CPT/HCPCS: 99202 ==

== ENCOUNTER 2023-10-04 14:18 | Outpatient (REF) | payer MEDICARE, MEDICAID, SELFPAY ==
--- NOTE | ~2023-10-04 | MM_ITS ---
EXAMINATION: MM SCREENING DIGITAL BREAST TOMOSYNTHESIS, BILATERAL CLINICAL INFORMATION: Screening. Asymptomatic. LATERAL LEFT ON THE CC COMPARISON: Mammography: This study is compared with prior exams dating back to 2019. TECHNIQUE: Digital breast tomosynthesis is performed in both the craniocaudal and mediolateral oblique views along with computer-aided detection (CAD). Synthesized 2D images are generated from the tomosynthesis. FINDINGS: The breasts are almost entirely fatty (ACR BI-RADS breast composition Category a). There are no significant masses, abnormal calcifications, or other abnormalities. Benign, secretory calcifications are present in the medial aspect of the right breast. MM/MM tomosynthesis screening BI IMPRESSION: No mammographic evidence of malignancy. ASSESSMENT: BI-RADS BI-RADS 2 - Benign Findings RECOMMENDATION: Routine annual mammography screening. 1 year F/U This examination should not preclude the clinical evaluation of a suspicious palpable abnormality. This patient's information was entered into a reminder system with a target due date for their next mammogram.
== END 2023-10-04 14:19 | disposition home or self-care (01) ==
LOC: HO.MAMMO 14:18
PROVIDERS: PCP Nurse Practitioner Family; Visit Provider Internal Medicine Endocrinology, Diabetes & Metabolism
DX: Z12.31 Encounter for screening mammogram for malignant neoplasm of breast (principal)
CPT/HCPCS: 77063; 77067

== ENCOUNTER → 2023-10-04 14:30 | Outpatient (BNV) | payer MEDICARE, MEDICAID, SELFPAY | PROVIDERS: PCP Nurse Practitioner Family; Visit Provider Radiology Diagnostic Radiology | DX: Z12.31 Encounter for screening mammogram for malignant neoplasm of breast (principal) | CPT/HCPCS: 77063; 77067 ==

== ENCOUNTER 2024-08-22 13:21 | Outpatient (AMB) | payer MEDICARE, MEDICAID, SELFPAY ==
--- NOTE | 2024-08-22 13:22 | MHC.PC.OV ---
Vital Signs 08/22/24 13:29 08/22/24 14:00 Height 5 ft 6 in Weight 192 lb BMI 31.0 BP 134/72 Blood Pressure Location Rt brachial Position Sitting Respiration 13 Pulse 105 H 88 Pulse Source Pulse Oximeter Auscultation Temp 97.6 F Temp Source Oral Pulse Oximetry (%) 96 Oxygen Delivery Method Room Air Intake Visit Reasons: preop september surgery Intake Note: Pre op for surgery in September. Patient needs refill on gabapentin and meloxicam. [employer] Distribution Required: No Allergies bacitracin [From Cortisporin] Allergy (Mild, Verified 08/22/24 13:23) itchy rash hydrocortisone [From Cortisporin] Allergy (Mild, Verified 08/22/24 13:23) itchy rash neomycin [From Cortisporin] Allergy (Mild, Verified 08/22/24 13:23) itchy rash polymyxin B [From Cortisporin] Allergy (Mild, Verified 08/22/24 13:23) itchy rash azithromycin [From ZITHROMAX] Allergy (Unknown, Verified 08/22/24 13:23) HIVES Iodinated Contrast Media [IV DYE, IODINE CONTAINING CONTRAST ] Allergy (Unknown, Verified 08/22/24 13:23) DIFFICULTY BREATHING sulfamethoxazole [From BACTRIM] Allergy (Unknown, Verified 08/22/24 13:23) RASH sumatriptan [From IMITREX] Allergy (Unknown, Verified 08/22/24 13:23) RASH trimethoprim [From BACTRIM] Allergy (Unknown, Verified 08/22/24 13:23) RASH mirtazapine Adverse Reaction (Mild, Verified 08/22/24 13:23) Vomiting trazodone Adverse Reaction (Mild, Verified 08/22/24 13:23) Vomiting From IMITREX Allergy (Unknown, Uncoded 08/22/24 13:23) RASH Medication List - Last Reconciled 08/22/24 by Skyla Vidal, GERALD- acetaminophen (Tylenol Extra Strength) 500 mg PO Q6H PRN cyanocobalamin (vitamin B-12) 1,000 mcg IM Q4W 12 months docosahexaenoic acid (Algal [place]-3 DHA) mg PO duloxetine (Cymbalta) 30 mg PO DAILY gabapentin 300 mg (1/2 x 600 mg) PO BEDTIME meloxicam 15 mg PO DAILY metronidazole 0.75% 1 appl topical DAILY PRN tizanidine 2 mg PO TID PRN Tobacco use date assessed: 08/22/24 Fall risk assessment: No Falls in past year Last assessed Fall Risk: 08/22/24 Dental Screening Dental Screen Date: 08/22/24 Did you have a dental visit in the last 12 months?: Yes Did you have a dental problem in the last 6 months where you did not have access to dental care?: No Was dental information given to patient?: Patient has dentist HPI HPI Comments History of Present Illness Details 64 y/o F with osteoarthritis, pernicious anemia, insomnia, post concussive syndrome Health maintenance: Mammogram ordered May of 2023, last 12/08/2021 within normal limits BI-RADS 2 benign Colonoscopy: DEXA:Ordered April 2023 Pap: Immunizations: Tdap Specialists: Of note she is not seeing any of the specialists at the current time Endocrinology Cardiology Orthopedics Neurology family hx: son alive and well dtr age 14 of brain cancer Ashlyn Here today for preoperative clearance. Surgery Type:total r hip replacement Anesthesia Type: general Surgeon: Dr Eulalio Cornejo Date: 10/01/2024 Any past surgical procedures: wisdom tooth extraction Any complications from anesthesia or in post-op period: has had conscious sedation, this was about 45 years ago, states she awoke during this; also has had EGD w/ MAC did fine with this ASA or NSAID Use: Taking meloxicam Current smoker: denies Alcohol use: denies Drug use: denies METs: > 4 climb flight of stairs, golf, walk, yardwork Medical history: Asthma NO COPD NO Obesity BMI 31 Diabetes NO CA < 6 weeks, unstable angina, CHF, severe valve disease: Denies Testing EKG completed, sinus tach, NSR States labs were done at [facility] 07/2024, i do not have these. They have been requested. She is aware clearance will not be granted until these are rec'd and reviewed. I will addend this once labs are rec'd. RCRI is Class 0 Risk Stratification: 3.9% Education Aspirin and NSAIDS should be discontinued one week before surgery to prevent excessive bleeding. If you are a smoker, there is increase risk of post surgical complications. Cessation is encouraged. Follow up with surgeon and all recommendations pre and post operatively. [facility] Medical History (Updated 08/22/24 @ 13:36 by Skyla Vidal, [facility]) Iliopsoas bursitis of right hip Surgical History (Updated 05/28/23 @ 11:15 by NIKITA Sunshine) No pertinent past surgical history Social History Housing: House Patient Tobacco Use Status: Never used Tobacco e-Cigarette/Vaping Use: Never Used service: No Current occupational status: disabled Cognitive needs: No Hearing needs: Yes Vision needs: Yes Questionnaire PHQ-9 Over the last 2 weeks, how often have you been bothered by any of the following problems? 1. Little interest or pleasure in doing things: not at all 2. Feeling down, depressed, or hopeless: not at all 3. Trouble falling or staying asleep, or sleeping too much: not at all 4. Feeling tired or having little energy: several days 5. Poor appetite or overeating: not at all 6. Feeling bad about yourself - or that you are a failure or have let yourself or your family down: not at all 7. Trouble concentrating on things, such as reading the newspaper or watching television: not at all 8. Moving or speaking so slowly that other people could have noticed. Or the opposite - being so fidgety or restless that you have been moving around a lot more than usual: not at all 9. Thoughts that you would be better off or of hurting yourself in some way: not at all Total score: 1 Depression Screening Interpretation: Negative Depression Screening Done: Yes 59046 - PHQ-9 Billing: Yes Source: Developed by Drs. Joseph Tracy, Ledy Nguyen, Erki Hudson and colleagues, with an educational jameson from [employer]. Thrive Questionnaire Date Thrive assessed: 08/22/24 I am a: Patient What is your living situation today?: I choose not to answer this question Within the past 12 months, did the food you bought not last and you didn't have the money to get more?: I choose not to answer this question Within the past 12 months, did you worry whether your food would run out before you got money to buy more?: I choose not to answer this question Do you have trouble paying for medicines?: I choose not to answer this question Do you have trouble getting transportation to medical appointments?: I choose not to answer this question Do you have trouble paying your heating and electricity bill?: I choose not to answer this question Do you have trouble taking care of your child, family member or friend?: I choose not to answer this question Do you have trouble with day-to-day activities such as bathing, preparing meals, shopping, managing finances, etc.?: I choose not to answer this question Are you currently unemployed and looking for a job?: I choose not to answer this question Are you interested in more education?: I choose not to answer this question Please select the resources that you would like help with: None Currently or been in a relationship where the following occur: I choose not to answer THRIVE Score: 0 AUDIT C Alcohol Use Questionnaire (AUDIT-C) 1. How often do you have a drink containing alcohol?: Never 3. How often do you have six or more drinks on one occasion?: Never Total Score: 0 Score Reviewed/Action Taken: Yes GLADIS-7 AMB Questionnaire GLADIS-7 Date GLADIS - 7 assessed: 08/22/24 Feeling nervous, anxious, or on edge: 0 = Not at all Not being able to stop or control worryin = Not at all Worrying too much about different things: 0 = Not at all Trouble relaxin = Not at all Being so restless that it is hard to sit still: 0 = Not at all Becoming easily annoyed or irritable: 0 = Not at all Feeling afraid as if something awful might happen: 0 = Not at all Total GLADIS-7 score (0-4 normal; 5-9 mild; 10-14 moderate; 15-21 severe): 0 Source: Developed by Drs. Joseph Tracy, Ledy Nguyen, Erik Hudson and colleagues, with an educational jameson from [employer]. GLADIS-7 Assessment Billing GLADIS-7 Assessment Tool: GLADIS-7 Assessment 28280 Physical exam (Primary Care) Vital Signs: Last Vital Signs Temp 97.6 F 08/22/24 13:29 Pulse 88 08/22/24 14:00 Resp 13 08/22/24 13:29 BP 134/72 08/22/24 13:29 Pulse Ox 96 08/22/24 13:29 Oxygen Delivery Method Room Air 08/22/24 13:29 BMI result Body Mass Index 31.0 Tobacco/Smoking Status: Tobacco use Status Tobacco use date assessed 08/22/24 08/22/24 13:25 Patient Tobacco Use Status Never used Tobacco 08/22/24 13:25 e-Cigarette/Vaping Use Never Used 08/22/24 13:25 PHQ-9: PHQ-9 Score PHQ-9: Total score 1 08/22/24 13:59 Depression Screening Interpretation: Negative Thrive Assessment: Date of Thrive Assessment Date Thrive assessed 08/22/24 08/22/24 13:25 Currently or been in a relationship where the following occur: I choose not to answer Office Procedures EKG 55383-Ilfmpwzozeqfucilm, Complete Coding Level of Care Code Est Pt Level 5 (40218) Complex EM visit Add On G2211 Diagnoses Pre-op exam Z01.818 Primary osteoarthritis of right hip M16.11 Osteoarthritis type: primary Obesity (BMI 30-39.9) E66.9 CPT Codes EKG - CPT: 92227-Sdfiadlljtqogcnud, Complete ([id number]) Additional Codes GLADIS-7 Assessment Billing - GLADIS-7 Assessment Tool: GLADIS-7 Assessment 98564 ([id number]) PHQ-9 - 13895 - PHQ-9 Billing: Yes ([id number]) Time Spent (min) 45 Assessment & Plan Assessment & Plan (1) Pre-op exam: Code(s): Z01.818 - Encounter for other preprocedural examination (2) Osteoarthritis of right hip: Code(s): M16.11 - Unilateral primary osteoarthritis, right hip Category: Medical Qualifiers: Osteoarthritis type: primary Qualified Code(s): M16.11 - Unilateral primary osteoarthritis, right hip (3) Obesity (BMI 30-39.9): Code(s): E66.9 - Obesity, unspecified Category: Medical Plan . Medications: Changed From gabapentin 300 mg (1/2 x 600 mg) PO BEDTIME 30 tabs 2RF To gabapentin 600 mg PO BEDTIME 90 tabs 2RF Refilled meloxicam 15 mg PO DAILY 90 tabs 2RF Discontinued duloxetine (Cymbalta) take at bedtime Discontinued Reason: Patient no longer taking 30 mg PO DAILY 14 caps 0RF tizanidine Do not take with other muscle relaxants. No driving or alcohol use while taking this medication. Discontinued Reason: Patient Completed Course 2 mg PO TID PRN 90 tabs 0RF muscle spasticity
[2024-08-22 13:29] VITALS: BP 134/72; PULSE 105; RESP 13; TEMP 36.4; O2SAT 96; BMI 31.0
[2024-08-22 14:00] VITALS: PULSE 88
== END 2024-08-22 14:05 | disposition home or self-care (01) ==
LOC: HO.HMCFM 13:22
PROVIDERS: PCP Nurse Practitioner Family; Visit Provider Nurse Practitioner Family
DX: Z01.818 Encounter for other preprocedural examination (principal); M16.11 Unilateral primary osteoarthritis, right hip; E66.9 Obesity, unspecified; Z68.31 Body mass index [BMI] 31.0-31.9, adult

== ENCOUNTER → 2024-08-22 13:21 | Outpatient (BNVA) | payer MEDICARE, MEDICAID, SELFPAY | PROVIDERS: PCP Nurse Practitioner Family; Visit Provider Nurse Practitioner Family | DX: Z01.818 Encounter for other preprocedural examination (principal); M16.11 Unilateral primary osteoarthritis, right hip; E66.9 Obesity, unspecified; Z68.31 Body mass index [BMI] 31.0-31.9, adult; Z71.3 Dietary counseling and surveillance | CPT/HCPCS: 93005; 96127; 99212 ==

== ENCOUNTER 2024-12-08 13:48 | Outpatient (AMB) | payer MEDICARE, MEDICAID, SELFPAY ==
--- NOTE | 2024-12-08 13:52 | MHC.PC.OV ---
Vital Signs 12/08/24 13:57 Height 5 ft 6 in BMI Reason not done Patient refused/unable BP 120/70 Blood Pressure Location Lt brachial Position Sitting Respiration 12 Pulse 68 Pulse Source Pulse Oximeter Temp 97.2 F Temp Source Oral Pulse Oximetry (%) 98 Oxygen Delivery Method Room Air Intake Visit Reasons: cyst Intake Note: Patient c/o right side growing area cyst x 1 week. Patient states cyst was draining blood on last sunday just a little bit. [employer] Manufacture Required: No Allergies bacitracin (From Cortisporin) Allergy (Mild, Verified 12/08/24 14:00) itchy rash hydrocortisone (From Cortisporin) Allergy (Mild, Verified 12/08/24 14:00) itchy rash neomycin (From Cortisporin) Allergy (Mild, Verified 12/08/24 14:00) itchy rash polymyxin B (From Cortisporin) Allergy (Mild, Verified 12/08/24 14:00) itchy rash azithromycin (From ZITHROMAX) Allergy (Unknown, Verified 12/08/24 14:00) HIVES Iodinated Contrast Media (IV DYE, IODINE CONTAINING CONTRAST ) Allergy (Unknown, Verified 12/08/24 14:00) DIFFICULTY BREATHING sulfamethoxazole (From BACTRIM) Allergy (Unknown, Verified 12/08/24 14:00) RASH sumatriptan (From IMITREX) Allergy (Unknown, Verified 12/08/24 14:00) RASH trimethoprim (From BACTRIM) Allergy (Unknown, Verified 12/08/24 14:00) RASH mirtazapine Adverse Reaction (Mild, Verified 12/08/24 14:00) Vomiting trazodone Adverse Reaction (Mild, Verified 12/08/24 14:00) Vomiting From IMITREX Allergy (Unknown, Uncoded 12/08/24 13:52) RASH Medication List - Last Reconciled 12/08/24 by Skyla Vidal, GERALD-BC acetaminophen (Tylenol Extra Strength) 500 mg PO Q6H PRN cyanocobalamin (vitamin B-12) 1,000 mcg IM Q4W 12 months docosahexaenoic acid (Algal [place]-3 DHA) mg PO gabapentin 600 mg PO BEDTIME meloxicam 15 mg PO DAILY metronidazole 0.75% 1 appl topical DAILY PRN Tobacco use date assessed: 12/08/24 Fall risk assessment: No Falls in past year Last assessed Fall Risk: 12/08/24 Dental Screening Dental Screen Date: 12/08/24 Did you have a dental visit in the last 12 months?: Yes Did you have a dental problem in the last 6 months where you did not have access to dental care?: No Was dental information given to patient?: Patient has dentist HPI HPI Comments History of Present Illness Details 64 y/o F with osteoarthritis, pernicious anemia, insomnia, post concussive syndrome s/p R hip replacement 09/2024 Health maintenance: Mammogram ordered May of 2023, last 12/08/2021 within normal limits BI-RADS 2 benign Colonoscopy: DEXA:Ordered April 2023 Pap: Immunizations: Tdap, Flu declined Specialists: Of note she is not seeing any of the specialists at the current time Endocrinology Cardiology Orthopedics Neurology family hx: son alive and well dtr age 14 of brain cancer Ashlyn Here today for a cyst on her R buttocks Started Sunday Witch heather warm comps bloody drainage post-op R THR 09/2024 feels better since onset Denies fever, chills. Urinating more but not having any other UTI sx Did have a elizondo and s/c during surgery along w/ SNF admission started to drink cranberry juice Offered and declined flu shot Exam: R buttocks is a palpable soft skin cyst, mild erythema, mildly tender, no drainage, mild fluctuance R hip THR incision well healed Plan Augmentin BID x 7 days, take w food goal to help Urine and Skin UA CC Will fu via portal Declined Flu shot RTO May, sooner as needed. Total time spent caring for the patient today was 30 minutes. This includes time spent before the visit reviewing the chart, time spent during the visit, and time spent after the visit on documentation, reviewing laboratory results, diagnostic imaging, medications, performing a medically necessary evaluation, counseling on diagnoses, care coordination, ordering appropriate tests, ordering appropriate medications, review of tests performed by other providers, reporting test results with the patient, communication with other healthcare providers. [facility] Medical History (Updated 12/08/24 @ 14:12 by STAN Hernandez) Iliopsoas bursitis of right hip Surgical History (Updated 12/08/24 @ 14:08 by STAN Hernandez) No pertinent past surgical history Status post total hip replacement, right (~09/2024) Social History Housing: House Patient Tobacco Use Status: Never used Tobacco e-Cigarette/Vaping Use: Never Used service: No Current occupational status: disabled Cognitive needs: No Hearing needs: Yes Vision needs: Yes Questionnaire Thrive Questionnaire Date Thrive assessed: 08/22/24 I am a: Patient What is your living situation today?: I choose not to answer this question Within the past 12 months, did the food you bought not last and you didn't have the money to get more?: I choose not to answer this question Within the past 12 months, did you worry whether your food would run out before you got money to buy more?: I choose not to answer this question Do you have trouble paying for medicines?: I choose not to answer this question Do you have trouble getting transportation to medical appointments?: I choose not to answer this question Do you have trouble paying your heating and electricity bill?: I choose not to answer this question Do you have trouble taking care of your child, family member or friend?: I choose not to answer this question Do you have trouble with day-to-day activities such as bathing, preparing meals, shopping, managing finances, etc.?: I choose not to answer this question Are you currently unemployed and looking for a job?: I choose not to answer this question Are you interested in more education?: I choose not to answer this question Please select the resources that you would like help with: None Currently or been in a relationship where the following occur: I choose not to answer THRIVE Score: 0 GLADIS-7 AMB Questionnaire GLADIS-7 Date GLADIS - 7 assessed: 08/22/24 Source: Developed by Drs. Joseph Tracy, Ledy Nguyen, Erik Hudson and colleagues, with an educational jameson from [employer]. Physical exam (Primary Care) Vital Signs: Last Vital Signs Temp 97.2 F 12/08/24 13:57 Pulse 68 12/08/24 13:57 Resp 12 12/08/24 13:57 BP 120/70 12/08/24 13:57 Pulse Ox 98 12/08/24 13:57 Oxygen Delivery Method Room Air 12/08/24 13:57 Tobacco/Smoking Status: Tobacco use Status Tobacco use date assessed 12/08/24 12/08/24 13:59 Patient Tobacco Use Status Never used Tobacco 12/08/24 13:59 e-Cigarette/Vaping Use Never Used 12/08/24 13:59 Thrive Assessment: Date of Thrive Assessment Date Thrive assessed 08/22/24 12/08/24 13:59 Currently or been in a relationship where the following occur: I choose not to answer Coding Level of Care Code Est Pt Level 4 (70170) Complex EM visit Add On G2211 Diagnoses Cyst of skin L72.9 Urinary frequency R35.0 Influenza vaccination declined Z28.21 Assessment & Plan Assessment & Plan (1) Cyst of skin: Code(s): L72.9 - Follicular cyst of the skin and subcutaneous tissue, unspecified Category: Medical (2) Urinary frequency: Code(s): R35.0 - Frequency of micturition Category: Medical (3) Influenza vaccination declined: Code(s): Z28.21 - Immunization not carried out because of patient refusal Category: Medical Plan . Orders: Orders UA CC w/rflx Micro + Cult Today R30.0 - Dysuria Medications: New amoxicillin-pot clavulanate 875-125 mg 1 tab PO BID 14 tabs 0RF 7 days
[2024-12-08 13:57] VITALS: BP 120/70; PULSE 68; RESP 12; TEMP 36.2; O2SAT 98
== END 2024-12-08 14:27 | disposition home or self-care (01) ==
LOC: HO.HMCFM 13:49
PROVIDERS: PCP Nurse Practitioner Family; Visit Provider Nurse Practitioner Family
DX: L72.9 Follicular cyst of the skin and subcutaneous tissue, unspecified (principal); R35.0 Frequency of micturition; Z28.21 Immunization not carried out because of patient refusal

== ENCOUNTER 2024-12-08 13:48 | Outpatient (REF) | payer MEDICARE, MEDICAID, SELFPAY ==
[2024-12-08 18:11] LABS: Appearance Urine Cloudy; Glucose Urine UA Negative (Negative); PH 5.0 (5.0-9.0); Specific Gravity - Urine 1.025 (1.005-1.025); UMIC TRIGGER UACC YES
== END 2024-12-08 13:49 | disposition home or self-care (01) ==
LOC: HO.LNP 13:48
PROVIDERS: PCP Nurse Practitioner Family; Visit Provider Nurse Practitioner Family
DX: R30.0 Dysuria (principal); L72.9 Follicular cyst of the skin and subcutaneous tissue, unspecified; R35.0 Frequency of micturition; Z28.21 Immunization not carried out because of patient refusal; Z79.899 Other long term (current) drug therapy
CPT/HCPCS: 81001; 99212